=== PATIENT | female | born 1965 | race American Indian/Alaskan Native ===

== ENCOUNTER 2019-01-19 11:42 | Emergency (ER) | payer OTHER ==
--- NOTE | 2019-01-19 12:10 | Cat Scan Report ---
CT HEAD WITHOUT CONTRAST INDICATION / CLINICAL INFORMATION: MAIN: neuro deficits <6hrs or sx present upon awakening STROKE [facility] OTCOL [id number] [phone]. Code stroke TECHNIQUE: Axial imaging performed from the skull apex through the skull base without the use of cont rast. Sagittal and coronal reformatted images. All CT scans at this location are performed using CT dose reduction for ALARA by means of automated exposure control. COMPARISON: None available. FINDINGS: CEREBRAL PARENCHYMA: No significant abnormality. No acute territorial infarct. HEMORRHAGE: None. EXTRA-AXIAL SPACES: Normal in size and morphology for the patient's age. VENTRICULAR SYSTEM: Normal in size and morphology for the patient's age. MIDLINE SHIFT OR HERNIATION: None. CEREBELLUM / BRAINSTEM: No significant abnormality. CALVARIUM: No significant abnormality. ORBITS: Normal as visualized. PARANASAL SINUSES / MASTOID AIR CELLS: Normal as visualized. SOFT TISSUES of HEAD: No significant abnormality. ADDITIONAL FINDINGS: None. IMPRESSION: No acute intracranial abnormality. These findings were discussed with Dr. Ferguson in the emergency department at 1205 hours EST. Signer Name: Orlando Rivera Jr, MD Signed: 01/19/2019 12:05 PM Workstation Name: [id number]
--- NOTE | 2019-01-19 12:19 | Consultation ---
History of Present Illness Consult date: 01/19/19 History of present illness: 53 y/o woman with h/o HTN, migraines, DM who presents with headache x 3 days and waking up with left sided weakness/numbness. CT head head reviewed and case discussed with ED staff. Last known well at 2300. Patient states she had a similar episode in 2009 and she said it was a "complicated migraine." Medications and Allergies Allergies Allergy/AdvReac Type Severity Reaction Status Date / Time Penicillins Allergy Rash Verified 01/18/14 10:47 Home Medications Medication Instructions Recorded Confirmed Last Taken Type Ferrous Sulfate [Feosol 325 MG tab] 325 mg PO ONCE 01/17/13 01/18/14 01/17/13 History Metoprolol [Lopressor TAB] 25 mg PO BID 01/17/13 01/18/14 01/16/13 History Omeprazole [PriLOSEC] 20 mg PO QDAY 01/17/13 01/18/14 Unknown History Pravastatin [Pravachol] 20 mg PO HS 01/17/13 01/18/14 01/16/14 History Physical Examination - Vital Signs Vital Signs: Vital Signs Temp Pulse Resp BP Pulse Ox 97.9 F 77 16 168/99 100 01/19/19 12:03 01/19/19 12:03 01/19/19 12:03 01/19/19 12:03 01/19/19 12:03 - Level of Consciousness 1a. Level of Consciousness: alert/keenly responsive - LOC Questions 1b. LOC Questions: answers both correctly - LOC Command 1c. LOC Commands: performs tasks correctly - Best Gaze 2. Best Gaze: normal - Visual 3. Visual: no visual loss - Facial Palsy 4. Facial Palsy: normal symmetrical movement - Motor Arm 5a. Motor Arm Left: drift 5b. Motor Arm Right: no drift - Motor Leg 6a. Motor Leg Left: drift 6b. Motor Leg Right: no drift - Limb Ataxia 7. Limb Ataxia: absent - Sensory 8. Sensory: mild/moderate sensory loss - Best Language 9. Best Language: no aphasia - Dysarthria 10. Dysarthria: normal - Extinction and Inattention 11. Extinction/Inattention: no abnormality - Scoring Total Score: 3 Stroke Severity: Minor Stroke Assessment and Plan [facility] Tele[facility]rology Consult Services Impression: Complicated migraines vs. Stroke Differential Diagnosis: 1. Cardioembolic stroke 2. Small vessel disease/lacune 3. Thromboembolic, [id number] mechanism 4. Hypercoagulable state-related infarct 5. Thrombotic mechanism, large artery disease 6. Transient ischemic attack Comments: Last known well: 2300 Door time:1142 [facility] contacted: 1208 [facility] at bedside: 1213 NIHSS assessment time:1213 Needle time:TPA not considered since she is out of the TPA window. Thrombectomy not considered since large proximal intracranial vessel occlusion is not suspected Patient was informed the Neurology Consult would happen via TeleHealth consult by way of interactive audio and video telecommunications and consented to receiving care in this manner. Discussion: Our recommendations are outlined below. Recommendations: ASA, IV fluids and permissive hypertension (Keep BP < 220/110) Neurochecks PT/OT/ST DVT prophylaxis Follow up with Neurology for further testing/evaluation Medical Decision Making: - Extensive number of diagnosis or management options are considered above. - Extensive amount of complex data reviewed. - High risk of complication and/or morbidity or mortality are associated with differential diagnostic considerations above. - There may be uncertain outcome and increased probability of prolonged functional impairment or high probability of severe prolonged functional impairment associated with some of these differential diagnosis. Medical Data Reviewed: 1.Data reviewed include clinical labs, radiology, Medical Tests; 2.Tests results discussed w/performing or interpreting physician; 3.Obtaining/reviewing old medical records; 4.Obtaining case history from another source; 5.Independent review of image, tracing or specimen.
[2019-01-19 12:37] LABS: Basophils % (Auto) 0.8 % (0.0-1.8); Eosinophils # (Auto) 0.1 K/mm3 (0.0-0.4); Eosinophils % (Auto) 1.4 % (0.0-4.3); Hematocrit 39.4 % (30.3-42.9); Hemoglobin 13.1 gm/dl (10.1-14.3); Lymphocytes # (Auto) 1.8 K/mm3 (1.2-5.4); Lymphocytes % (Auto) 30.6 % (13.4-35.0); Mean Corpuscular HGB Conc 33 % (30-34); Mean Corpuscular Volume 82 fl (79-97); Monocytes # (Auto) 0.5 K/mm3 (0.0-0.8); Monocytes % (Auto) 8.4 % (0.0-7.3); Platelet Count 300 K/mm3 (140-440); Red Blood Count 4.84 M/mm3 (3.65-5.03); Red Cell Distribution Width 14.7 % (13.2-15.2)
[2019-01-19] MEDS ORDERED: ECOTRIN PO ONE (12:40)
[2019-01-19 12:47] LABS: INR 1.02 (0.87-1.13)
[2019-01-19 12:48] LABS: BUN/Creatinine Ratio 18; Blood Urea Nitrogen 16 mg/dL (7-17); Calcium 9.5 mg/dL (8.4-10.2); Hemolysis Index 4
[2019-01-19 12:51] LABS: Thrombin Time 17.3 Sec. (15.1-19.6)
--- NOTE | 2019-01-19 12:53 | Emergency Department Report ---
ED General Adult HPI - General Chief complaint: Neuro Symptoms/Deficit Stated complaint: NUMB LFT SIDE/WEAK Time Seen by Provider: 01/19/19 12:10 Source: patient Mode of arrival: Wheelchair Limitations: No Limitations - History of Present Illness Initial comments: 53 y.o. female with history of HTN and migraines presents with complaint of headache and weakness beginning this morning. Patient states that she called her physician and was told to come to the ER. Patient denies any falls. Patient complains of a headache for the past three days. Patient has had no vomiting. Patient denies any new trauma. Patient denies slurred speech. Patient states annabelle t her weakness is primarily on her left side. Patient denies chest pain or shortness of breath. - Related Data Home Medications Medication Instructions Recorded Confirmed Last Taken Ferrous Sulfate [Feosol 325 MG tab] 325 mg PO ONCE 01/17/13 01/18/14 01/17/13 Metoprolol [Lopressor TAB] 25 mg PO BID 01/17/13 01/18/14 01/16/13 Omeprazole [PriLOSEC] 20 mg PO QDAY 01/17/13 01/18/14 Unknown Pravastatin [Pravachol] 20 mg PO HS 01/17/13 01/18/14 01/16/14 Allergies Allergy/AdvReac Type Severity Reaction Status Date / Time Penicillins Allergy Rash Verified 01/18/14 10:47 ED Review of Systems ROS: Stated complaint: NUMB LFT SIDE/WEAK Other details as noted in HPI Constitutional: denies: chills, fever Eyes: denies: eye pain, eye discharge, vision change ENT: denies: ear pain, throat pain Respiratory: denies: cough, shortness of breath, wheezing Cardiovascular: denies: chest pain, palpitations Endocrine: no symptoms reported Gastrointestinal: denies: abdominal pain, nausea, diarrhea Genitourinary: denies: urgency, dysuria, discharge Musculoskeletal: denies: back pain, joint swelling, arthralgia Skin: denies: rash, lesions Neurological: headache, weakness Psychiatric: denies: anxiety, depression Hematological/Lymphatic: denies: easy bleeding, easy bruising ED Past Medical Hx - Past Medical History Previous Medical History?: Yes Hx Hypertension: Yes Hx CVA: Yes (2009) Hx GERD: Yes Additional medical history: high cholesterol, Anemia, Murmur - Surgical History Past Surgical History?: Yes Additional Surgical History: Hysterectomy - Social History Smoking Status: Never Smoker Substance Use Type: None - Medications Home Medications: Home Medications Medication Instructions Recorded Confirmed Last Taken Type Ferrous Sulfate [Feosol 325 MG tab] 325 mg PO ONCE 01/17/13 01/18/14 01/17/13 History Metoprolol [Lopressor TAB] 25 mg PO BID 01/17/13 01/18/14 01/16/13 History Omeprazole [PriLOSEC] 20 mg PO QDAY 01/17/13 01/18/14 Unknown History Pravastatin [Pravachol] 20 mg PO HS 01/17/13 01/18/14 01/16/14 History ED Physical Exam - General Limitations: No Limitations General appearance: alert, other (uncomfortable; ) - Head Head exam: Present: atraumatic, normocephalic - Eye Eye exam: Present: normal appearance - ENT ENT exam: Present: mucous membranes moist - Neck Neck exam: Present: normal inspection - Respiratory Respiratory exam: Present: normal lung sounds bilaterally. Absent: respiratory distress - Cardiovascular Cardiovascular Exam: Present: regular rate, normal rhythm. Absent: systolic murmur, diastolic murmur, rubs, gallop - GI/Abdominal GI/Abdominal exam: Present: soft, normal bowel sounds - Extremities Exam Extremities exam: Present: normal inspection - Back Exam Back exam: Present: normal inspection - Neurological Exam Neurological exam: Present: alert, oriented X3, CN II-XII intact. Absent: motor sensory deficit - Expanded Neurological Exam Expanded Patient oriented to: Present: person, place, time Cranial nerves: EOM's Intact: Normal Cerebellar function: Finger to Nose: Normal Motor strength exam: RUE: 5, LUE: 5, RLE: 5, LLE: 5 Best Eye Response ([place]): (4) open spontaneously Best Motor Response ([place]): (6) obeys commands Best Verbal Response ([place]): (5) oriented [place] Total: 15 - Psychiatric Psychiatric exam: Present: normal affect, normal mood - Skin Skin exam: Present: warm, dry, intact, normal color. Absent: rash ED Course Vital Signs 01/19/19 12:03 Temperature 97.9 F Pulse Rate 77 Respiratory 16 Rate Blood Pressure 168/99 O2 Sat by Pulse 100 Oximetry ED Medical Decision Making - Lab Data Result diagrams: 01/19/19 12:00 01/19/19 12:00 - EKG Data EKG shows normal: sinus rhythm Rate: normal - EKG Data When compared to previous EKG there are: no significant change Interpretation: no acute changes - Medical Decision Making Patient seen by teleneurology. patient Bp is controlled. Patient to be admitted to the hospitalist service for continued management and treatment. Patient is not a candidate for TPA. Patient received Aspirin therapy while in the ER. - Differential Diagnosis Arrythmia; NSTEMI; STEMI; Intracranial Bleed; CVA Critical Care Time: Yes Critical care time in (mins) excluding proc time.: 36 Critical care attestation.: If time is entered above; I have spent that time in minutes in the direct care of this critically ill patient, excluding procedure time. Critical Care time includes time spent with direct bedside care, physician consultation, and frequent reassessments. ED Disposition Clinical Impression: HTN (hypertension), CVA (cerebral vascular accident) Disposition: OP ADMIT IP TO THIS HOSP Is pt being admited?: Yes Does the pt Need Aspirin: No Condition: Stable Instructions: Hypertension (ED)
[2019-01-19 13:08] LABS: Partial Thromboplastin Time 31.3 Sec. (24.2-36.6)
--- NOTE | 2019-01-19 15:07 | Event Note ---
Date: 01/19/19 patient had some L side weakness and Severe H/A Symotims resolved while in the ER. Power is 5/5 on L side Imp Complex Migraine Imitrex 6 mg Sub Q Imitrex 50 m,g po qd prn Fioricet 40/300/50 qid pr[address] Ref [address] Donta Rossi -Neurology
[2019-01-19 15:53] VITALS: BP 168/100
[2019-01-19] MEDS ORDERED: IMITREX SUB-Q ONE (16:01)
== END 2019-01-19 15:48 | disposition admitted as inpatient to this hospital (09) ==
LOC: ED 11:42
DX: I63.9 Cerebral infarction, unspecified (principal); G43.909 Migraine, unspecified, not intractable, without status migrainosus; I10 Essential (primary) hypertension; K21.9 Gastro-esophageal reflux disease without esophagitis; E78.00 Pure hypercholesterolemia, unspecified; D64.9 Anemia, unspecified; Z79.899 Other long term (current) drug therapy; Z88.0 Allergy status to penicillin
CPT/HCPCS: 36415; 70450; 80048; 82962; 84484; 84703; 85025; 85610; 85670; 85730; 93005; 93010; 96372; J3030